=== PATIENT | female | born 1945 ===

== ENCOUNTER 2017-10-27 12:43 | Emergency (ER) | payer MEDICAID ==
[2017-10-27 12:43] VITALS: BMI 34.7
[2017-10-27 13:00] VITALS: TEMP 98
[2017-10-27] MEDS ORDERED: Oxycodone/Acetaminophen 5/325 mg Tab PO STA (13:20)
--- NOTE | 2017-10-27 14:08 | ED PDOC ---
Lower Extremity Pain/Injury Time Seen by Provider: 10/27/17 12:58 Chief Complaint (Nursing): Lower Extremity Problem/Injury Chief Complaint (Provider): Back pain History Per: Patient, Family History/Exam Limitations: no limitations Additional Complaint(s): Pt reports low back pain that started after having physical therapy yesterday on her L leg, took Tramadol without relief. Pain radiates from lower back down L leg. Denies weakness, trauma, numbness, incontinence. Past Medical History Reviewed: Historical Data, Nursing Documentation, Vital Signs Vital Signs: Last Vital Signs Temp 98 F 10/27/17 12:57 Pulse 80 10/27/17 12:57 Resp 20 10/27/17 12:57 BP 163/83 H 10/27/17 12:57 Pulse Ox 99 10/27/17 12:57 - Medical History PMH: Arthritis Denies: Chronic Kidney Disease - Surgical History Surgical History: Endoscopy - Family History Family History: States: Unknown Family Hx - Living Arrangements Living Arrangements: With Family - Social History Current smoker - smoking cessation education provided: No - Home Medications Home Medications: Ambulatory Orders Medication Instructions Recorded Cyclobenzaprine [Cyclobenzaprine 10 mg PO TID PRN #15 tab 10/27/17 HCl] Naproxen [Naprosyn] 500 mg PO BID PRN #15 tablet 10/27/17 - Allergies Allergies/Adverse Reactions: Allergies Allergy/AdvReac Type Severity Reaction Status Date / Time No Known Allergies Allergy Verified 06/24/14 08:18 Wells Criteria for PE - Wells Criteria for Pulmonary Embolism Clinical Signs and Symptoms of DVT: No P.E is #1 Diagnosis, or Equally Likely: No Heart Rate >100: No Immobilization at least 3 days;Surgery previous 4 weeks: No Previous, objectively diagnosed PE or DVT: No Hemoptysis: No Malignancy w/treatment within 6 months, or palliative: No Total Score: 0 Review of Systems Constitutional: Negative for: Fever, Chills Cardiovascular: Negative for: Chest Pain Respiratory: Negative for: Cough, Shortness of Breath Gastrointestinal: Negative for: Nausea, Vomiting, Abdominal Pain, Diarrhea Musculoskeletal: Positive for: Back Pain, Leg Pain Skin: Negative for: Rash, Lesions Neurological: Negative for: Weakness, Numbness, Headache, Dizziness Physical Exam - Reviewed Nursing Documentation Reviewed: Yes Vital Signs Reviewed: Yes - Physical Exam Appears: Positive for: Uncomfortable Head Exam: Positive for: ATRAUMATIC, NORMAL INSPECTION Skin: Positive for: Normal Color, Warm, Dry Eye Exam: Positive for: Normal appearance, EOMI, PERRL Neck: Positive for: Normal, Painless ROM, Supple Cardiovascular/Chest: Positive for: Regular Rate, Rhythm Respiratory: Positive for: Normal Breath Sounds Extremity: Positive for: Normal ROM. Negative for: Tenderness, Pedal Edema, Calf Tenderness, Capillary Refill, Deformity, Swelling Neurologic/Psych: Positive for: Alert, Oriented. Negative for: Motor/Sensory Deficits - ECG O2 Sat by Pulse Oximetry: 99 (RA) Pulse Ox Interpretation: Normal Medical Decision Making Medical Decision Makin yo female with low back pain. - XR L-spine - Percocet - Toradol Accession No. 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 HISTORY: LBP COMPARISON: No prior. FINDINGS: BONES: Normal alignment. No listhesis. No fracture. DISC SPACES: Multilevel severe degenerative changes with levoscoliosis. OTHER FINDINGS: None. IMPRESSION: Multilevel severe degenerative changes with levoscoliosis. Disposition - Clinical Impression Clinical Impression: Low back pain - Disposition Disposition: Routine/Home Disposition Time: 15:10 Condition: IMPROVED Additional Instructions: FOLLOW-UP WITH PMD WITHIN 2 DAYS FOR REEVALUATION. Prescriptions: Cyclobenzaprine [Cyclobenzaprine HCl] 10 mg PO TID PRN #15 tab PRN Reason: Pain Naproxen [Naprosyn] 500 mg PO BID PRN #15 tablet PRN Reason: Pain, Moderate (4-7) Instructions: Low Back Pain in Adults Forms: [facility] (Cook Islander) Print Language: YI
[2017-10-27 15:39] VITALS: BP 162/83; PULSE 76; RESP 16
--- NOTE | 2017-10-28 07:46 | RAD ---
PROCEDURE: Radiographs of the Lumbar Spine. HISTORY: LBP COMPARISON: No prior. FINDINGS: BONES: Normal alignment. No listhesis. No fracture. DISC SPACES: Multilevel severe degenerative changes with levoscoliosis. OTHER FINDINGS: None. IMPRESSION: Multilevel severe degenerative changes with levoscoliosis.
[2017-10-28 13:37] VITALS: O2SAT 99
== END 2017-10-27 15:39 | disposition home or self-care (01) ==
LOC: H.ER 12:43
DX: M54.5 Low back pain (principal)
CPT/HCPCS: 72100; 96372; 99284; J1885

== ENCOUNTER 2018-04-12 12:25 | Emergency (ER) | payer MEDICAID ==
[2018-04-12 12:25] VITALS: BMI 34.7
[2018-04-12 13:06] VITALS: O2SAT 99
[2018-04-12] MEDS ORDERED: Lidocaine 5% Patch TD STA (13:35)
--- NOTE | 2018-04-12 13:42 | ED PDOC ---
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 Patient states that she had 2 rounds of physical therapy and multiple x-rays and is uncertain of the results. She reports that she normally sees Dr. Sanchez for the pain but on Sunday (5 days ago) the pain was at its worst and she went to [facility] ad was given a shot of pain medications and was discharged without any imaging but with prescriptions for Tramadol/Tylenol. Patient states that the pain is not improving and it starts in the lower back and goes down the left leg, worsened with movement of the left leg. She denies any trauma, dysuria, incontinence, abdominal pain, nausea, or vomiting. PMD: DR. Sanchez Past Medical History Reviewed: Historical Data, Nursing Documentation, Vital Signs Vital Signs: Last Vital Signs Temp 98.1 F 04/12/18 13:04 Pulse 92 H 04/12/18 13:04 Resp 18 04/12/18 13:04 BP 150/80 04/12/18 13:04 Pulse Ox 99 04/12/18 13:04 - Medical History PMH: Arthritis Denies: Chronic Kidney Disease - Surgical History Surgical History: Endoscopy - Family History Family History: States: Unknown Family Hx - Social History Current smoker - smoking cessation education provided: No Alcohol: None Drugs: Denies - Home Medications Home Medications: Ambulatory Orders Medication Instructions Recorded Cyclobenzaprine [Cyclobenzaprine 10 mg PO TID PRN #15 tab 10/27/17 HCl] Naproxen [Naprosyn] 500 mg PO BID PRN #15 tablet 10/27/17 Lidocaine 5% [Lidoderm] 1 ea TD DAILY PRN #10 patch 04/12/18 Metaxalone [Skelaxin] 800 mg PO TID PRN #10 tablet 04/12/18 Methylprednisolone [Medrol Dose 4 mg PO DAILY #21 mg 04/12/18 Pack (21 tabs)] - Allergies Allergies/Adverse Reactions: Allergies Allergy/AdvReac Type Severity Reaction Status Date / Time No Known Allergies Allergy Verified 04/12/18 13:04 Review of Systems ROS Statement: Except As Marked, All Systems Reviewed And Found Negative Gastrointestinal: Negative for: Nausea, Vomiting, Abdominal Pain Genitourinary Female: Negative for: Dysuria, Incontinence Musculoskeletal: Positive for: Back Pain, Leg Pain Physical Exam - Reviewed Nursing Documentation Reviewed: Yes Vital Signs Reviewed: Yes - Physical Exam Appears: Positive for: Non-toxic, In Acute Distress (mild painful distress) Head Exam: Positive for: ATRAUMATIC, NORMAL INSPECTION, NORMOCEPHALIC Skin: Positive for: Normal Color, Warm, Dry Eye Exam: Positive for: Normal appearance, EOMI, PERRL ENT: Positive for: Normal ENT Inspection Neck: Positive for: Normal, Painless ROM, Supple Cardiovascular/Chest: Positive for: Regular Rate, Rhythm. Negative for: Murmur Respiratory: Positive for: Normal Breath Sounds. Negative for: Respiratory Distress Pulses-Dorsalis Pedis (L): 2+ Pulses-Dorsalis Pedis (R): 2+ Gastrointestinal/Abdominal: Positive for: Normal Exam, Soft. Negative for: Tenderness Back: Positive for: Normal Inspection, Other (left paralumbar tenderness). Negative for: L CVA Tenderness, R CVA Tenderness, Vertebral Tenderness Extremity: Positive for: Normal ROM, Other (straight leg raise positive for left leg at 30 degrees ). Negative for: Calf Tenderness, Deformity Neurologic/Psych: Positive for: Alert, Oriented. 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 Advised to f/u with PMD and to still get MRI. Also told to continue taking Ultracet and informed that Skelaxin can cause drowsiness. States pain has improved but is still present. 1457 CT ABD/Pelvis FINDINGS: LOWER THORAX: Cardiomegaly is identified. Small hiatal hernia. No pleural or pericardial effusion. LIVER: Unremarkable. No gross lesion or ductal dilatation. GALLBLADDER AND BILE DUCTS: Unremarkable. Kidney. PANCREAS: Unremarkable. No gross lesion or ductal dilatation. SPLEEN: Unremarkable. ADRENALS: Unremarkable. No mass. KIDNEYS AND URETERS: No obstructive uropathy identified bilaterally. A punctate intrarenal calculus identified at the midpole right kidney with none identified at the left. There is a stable 2.2 cm cyst identified at the lower pole left. Unenhanced bilateral renal parenchyma is otherwise unremarkable. No definite perinephric reaction bilaterally. VASCULATURE: Nonaneurysmal abdominal aortic calcific atherosclerotic changes are identified. BOWEL: Unremarkable. No bowel obstruction. Scattered infrequent diverticula are identified involving the ascending and transverse colon segments as well as mildly at the sigmoid segment. No acute changes to suggest diverticulitis. APPENDIX: No CT evidence of appendicitis. PERITONEUM: Unremarkable. No free fluid. No free air. LYMPH NODES: Unremarkable. No enlarged lymph nodes. BLADDER: The bladder is largely decompressed but is thin and smooth walled. No radiodense urolithiasis related. REPRODUCTIVE: Prior hysterectomy suggested. BONES: Limited grade 1 spondylolisthesis L3-4, stable. Limited scoliotic deformity lumbar spine reiterated. Advanced multilevel degenerative disease again identified lumbar spine. OTHER FINDINGS: None. IMPRESSION: A punctate intrarenal calculus is identified at the right kidney without definite obstructive uropathy bilaterally. Urinary bladder is decompressed and otherwise unremarkable appearing. No perinephric reaction bilaterally. Limited colonic diverticular changes without diverticulitis. Prior hysterectomy suggested. 15:22 CT Lumbar spine finding FINDINGS: VERTEBRAE: Minimal anterolisthesis of L3-4 not significantly changed in appearance based on prior abdomen and pelvis CT 12/29/2013. No spondylolysis with pattern due to facet arthropathy at L3-4. There is mild straightening of the lumbar curvature. No additional spondylolisthesis. Advanced degenerative disease appreciated with diffuse disc desiccation and vacuum disc changes seen throughout the lumbar spine with combined disc height loss noted diffusely but seen worst at L2-3 and L4-5. No destructive bony lesion identified. Multilevel facet joint arthropathy and spondylosis are appreciated. Prevertebral paraspinal soft tissues are remarkable for non aneurysmal calcified abdominal aortic atherosclerosis. Mild scoliotic lumbar spinal deformity appreciated as well. DISCS/SPINAL CANAL/NEURAL FORAMINA: No gross disc herniation appreciated throughout the exam although MRI is more sensitive. L1-2: Mild central stenosis due to symmetric facet joint degenerative arthropathy more so than circumferential disc osteophyte complex. Mild bilateral degenerative neural foraminal stenoses identified as well. L2-3: A mild central stenosis results from prominent facet joint degenerative arthrosis as well as circumferential disc osteophyte complex. Mild degenerative neural foraminal stenosis is noted bilaterally. L3-4: Moderate to severe degenerative central stenosis due to circumferential disc osteophyte complex, mild spondylolisthesis and gross facet joint arthropathy. Mild bilateral neural foraminal stenosis identified. L4-5: Moderate central stenosis caused by circumferential disc osteophyte complex combining with gross facet joint degenerative arthropathy. [id number] bilateral neural foraminal stenoses identified. L5-S1: Borderline central canal stenosis due to circumferential disc osteophyte complex combining with facet joint degenerative arthropathy. Mild bilateral neural foraminal stenosis identified. PARASPINAL SOFT TISSUES: Unremarkable. OTHER FINDINGS: None. IMPRESSION: 1. At L3-4, there is moderate to severe degenerative central canal stenosis due to circumferential disc osteophyte complex combining with grade 1 spondylolisthesis and marked facet joint degenerative arthropathy. Mild bilateral neural foraminal stenosis is also identified. 2. Multilevel lesser spinal stenosis on a degenerative basis. Spondylolisthesis at L3-4 is on the basis of facet arthropathy. No spondylolysis throughout. Scribe Attestation: Documented by Maribel Smith, acting as a scribe for Juan Jose Hull PA-C. Provider Scribe Attestation: All medical record entries made by the Scribe were at my direction and personally dictated by me. I have reviewed the chart and agree that the record accurately reflects my personal performance of the history, physical exam, medical decision making, and the department course for this patient. I have also personally directed, reviewed, and agree with the discharge instructions and disposition. Disposition - Clinical Impression Clinical Impression: Sciatica, Kidney stone on right side - Patient ED Disposition Is Patient to be Admitted: No - Disposition Referrals: [facility] [Outside] Dean Grande MD [Medical Doctor] - Disposition: Routine/Home Disposition Time: 15:58 Condition: IMPROVED Additional Instructions: MIRA BENZ, thank you for letting us take care of you today. Your provider was Dm Woody MD and you were treated for BACK PAIN. The emergency medical care you received today was directed at your acute symptoms. If you were prescribed any medication, please fill it and take as directed. It may take several days for your symptoms to resolve. Return to the Emergency Department if your symptoms worsen, do not improve, or if you have any other problems. Please contact your doctor or call one of the physicians/clinics you have been referred to that are listed on the Patient Visit Information form that is included in your discharge packet. Bring any paperwork you were given at discharge with you along with any medications you are taking to your follow up visit. Our treatment cannot replace ongoing medical care by a primary care provider outside of the emergency department. Thank you for allowing the [facility] team to be part of your care today. If you had an X-Ray or CT scan: A Radiologist will review the ED reading if any change in treatment is needed we will contact you. If you had a blood, urine, or wound culture: It will take several days for the results, if any change in treatment is needed we will contact you. If you had an STI test: It will take 48 hours for the results. Please call after 1 week if you have not heard back. Prescriptions: Lidocaine 5% [Lidoderm] 1 ea TD DAILY PRN #10 patch PRN Reason: Pain Metaxalone [Skelaxin] 800 mg PO TID PRN #10 tablet PRN Reason: Muscle Spasm Methylprednisolone [Medrol Dose Pack (21 tabs)] 4 mg PO DAILY #21 mg Instructions: Kidney Stones (DC), Sciatica (DC) Forms: [employer] ([place]ian) Print Language: TURKMEN
[2018-04-12] MEDS ORDERED: Lidocaine 5% Patch TD ONE (14:00)
[2018-04-12 14:03] LABS: SQUAMOUS EPITHIAL < 1 /hpf (0-5); URINE BILIRUBIN NEGATIVE (NEGATIVE); URINE BLOOD SMALL (NEGATIVE); URINE CLARITY CLEAR (Clear); URINE COLOR STRAW (YELLOW); URINE GLUCOSE (UA) NEG (Normal); URINE LEUKOCYTE ESTERASE NEG Leu/uL (Negative); URINE PROTEIN NEGATIVE (NEGATIVE); URINE UROBILINOGEN 0.2-1.0 mg/dL (0.2-1.0)
[2018-04-12 14:05] LABS: BASO % 0.3 % (0.0-2.0); EOS # 0.1 K/uL (0.0-0.7); HEMOGLOBIN 13.9 g/dL (12.0-16.0); LYMPH # 1.4 K/uL (1.0-4.3); LYMPH % 20.3 % (20.0-40.0); MEAN CELL VOLUME 100.6 fl (81.0-99.0); MEAN CORPUSCULAR HEMOGLOBIN 33.7 pg (27.0-31.0); MEAN CORPUSCULAR HGB CONC 33.5 g/dL (33.0-37.0); MEAN PLATELET VOLUME 9.4 fl (7.2-11.7); MONO # 0.5 K/uL (0.0-0.8); MONO % 6.9 % (0.0-10.0); NEUT # 4.9 K/uL (1.8-7.0); NEUT % 70.5 % (50.0-75.0); RBC 4.12 Mil/uL (3.80-5.20); RED CELL DISTRIBUTION WIDTH 13.3 % (11.5-14.5)
[2018-04-12 14:10] LABS: ALB/GLOB RATIO 1.2 (1.0-2.1); ALBUMIN 4.2 g/dL (3.5-5.0); ALT/SGPT 45 U/L (9-52); AST/SGOT 36 U/L (14-36); BLOOD UREA NITROGEN 19 mg/dl (7-17); CALCIUM 9.5 mg/dL (8.4-10.2); GFR NON-AFRICAN AMERICAN > 60
--- NOTE | 2018-04-12 14:55 | CT ---
Date of service: 04/12/2018 PROCEDURE: CT Abdomen and Pelvis without intravenous contrast HISTORY: back pain, hematuria COMPARISON: Abdomen pelvis CT with contrast 12/29/2013. TECHNIQUE: Helical CT of the abdomen and pelvis was performed without oral or intravenous contrast as per referring physician request. Coronal and sagittal reformats were generated. Contrast dose: None Radiation dose: Total exam DLP = 1592.02 mGy-cm. This CT exam was performed using one or more of the following dose reduction techniques: Automated exposure control, adjustment of the mA and/or kV according to patient size, and/or use of iterative reconstruction technique. FINDINGS: LOWER THORAX: Cardiomegaly is identified. Small hiatal hernia. No pleural or pericardial effusion. LIVER: Unremarkable. No gross lesion or ductal dilatation. GALLBLADDER AND BILE DUCTS: Unremarkable. Kidney. PANCREAS: Unremarkable. No gross lesion or ductal dilatation. SPLEEN: Unremarkable. ADRENALS: Unremarkable. No mass. KIDNEYS AND URETERS: No obstructive uropathy identified bilaterally. A punctate intrarenal calculus identified at the midpole right kidney with none identified at the left. There is a stable 2.2 cm cyst identified at the lower pole left. Unenhanced bilateral renal parenchyma is otherwise unremarkable. No definite perinephric reaction bilaterally. VASCULATURE: Nonaneurysmal abdominal aortic calcific atherosclerotic changes are identified. BOWEL: Unremarkable. No bowel obstruction. Scattered infrequent diverticula are identified involving the ascending and transverse colon segments as well as mildly at the sigmoid segment. No acute changes to suggest diverticulitis. APPENDIX: No CT evidence of appendicitis. PERITONEUM: Unremarkable. No free fluid. No free air. LYMPH NODES: Unremarkable. No enlarged lymph nodes. BLADDER: The bladder is largely decompressed but is thin and smooth walled. No radiodense urolithiasis related. REPRODUCTIVE: Prior hysterectomy suggested. BONES: Limited grade 1 spondylolisthesis L3-4, stable. Limited scoliotic deformity lumbar spine reiterated. Advanced multilevel degenerative disease again identified lumbar spine. OTHER FINDINGS: None. IMPRESSION: A punctate intrarenal calculus is identified at the right kidney without definite obstructive uropathy bilaterally. Urinary bladder is decompressed and otherwise unremarkable appearing. No perinephric reaction bilaterally. Limited colonic diverticular changes without diverticulitis. Prior hysterectomy suggested.
--- NOTE | 2018-04-12 15:26 | CT ---
Date of service: 04/12/2018 PROCEDURE: CT Lumbar Spine without contrast HISTORY: L sided low back pain COMPARISON: Abdomen and Pelvis CT 12/29/2013 TECHNIQUE: Axial computed tomography images were obtained of the lumbar spine without the use of intravenous contrast. Coronal and sagittal reformatted images were created and reviewed. Radiation dose: Total exam DLP = 0.0 mGy-cm. This CT exam was performed using one or more of the following dose reduction techniques: Automated exposure control, adjustment of the mA and/or kV according to patient size, and/or use of iterative reconstruction technique. FINDINGS: VERTEBRAE: Minimal anterolisthesis of L3-4 not significantly changed in appearance based on prior abdomen and pelvis CT 12/29/2013. No spondylolysis with pattern due to facet arthropathy at L3-4. There is mild straightening of the lumbar curvature. No additional spondylolisthesis. Advanced degenerative disease appreciated with diffuse disc desiccation and vacuum disc changes seen throughout the lumbar spine with combined disc height loss noted diffusely but seen worst at L2-3 and L4-5. No destructive bony lesion identified. Multilevel facet joint arthropathy and spondylosis are appreciated. Prevertebral paraspinal soft tissues are remarkable for non aneurysmal calcified abdominal aortic atherosclerosis. Mild scoliotic lumbar spinal deformity appreciated as well. DISCS/SPINAL CANAL/NEURAL FORAMINA: No gross disc herniation appreciated throughout the exam although MRI is more sensitive. L1-2: Mild central stenosis due to symmetric facet joint degenerative arthropathy more so than circumferential disc osteophyte complex. Mild bilateral degenerative neural foraminal stenoses identified as well. L2-3: A mild central stenosis results from prominent facet joint degenerative arthrosis as well as circumferential disc osteophyte complex. Mild degenerative neural foraminal stenosis is noted bilaterally. L3-4: Moderate to severe degenerative central stenosis due to circumferential disc osteophyte complex, mild spondylolisthesis and gross facet joint arthropathy. Mild bilateral neural foraminal stenosis identified. L4-5: Moderate central stenosis caused by circumferential disc osteophyte complex combining with gross facet joint degenerative arthropathy. [id number] bilateral neural foraminal stenoses identified. L5-S1: Borderline central canal stenosis due to circumferential disc osteophyte complex combining with facet joint degenerative arthropathy. Mild bilateral neural foraminal stenosis identified. PARASPINAL SOFT TISSUES: Unremarkable. OTHER FINDINGS: None. IMPRESSION: 1. At L3-4, there is moderate to severe degenerative central canal stenosis due to circumferential disc osteophyte complex combining with grade 1 spondylolisthesis and marked facet joint degenerative arthropathy. Mild bilateral neural foraminal stenosis is also identified. 2. Multilevel lesser spinal stenosis on a degenerative basis. Spondylolisthesis at L3-4 is on the basis of facet arthropathy. No spondylolysis throughout.
[2018-04-12 16:46] VITALS: BP 138/74; PULSE 88; RESP 16; TEMP 98
== END 2018-04-12 16:45 | disposition home or self-care (01) ==
LOC: H.ER 12:25
DX: M54.31 Sciatica, right side (principal); N20.0 Calculus of kidney
CPT/HCPCS: 72131; 74176; 80053; 81003; 85025; 96374; 99283; J1885